=== PATIENT | male | born 1990 | race Two or more races ===

== ENCOUNTER 2019-11-21 17:26 | Emergency (ER) | payer SELFPAY ==
[~2019-11-21] VITALS: Ht 175.3 cm; Wt 77.1 kg
[2019-11-21 17:49] VITALS: BP 120/85
--- NOTE | 2019-11-21 17:55 | NUR ---
ED Nurse Note: patient walked into ED from work, reports left eye injury, c/o 03/25. patient reports some "trash" got into his eye and he could not take it out. patient is alert awake ambulatory breathing unlabored and even, speaking in full sentences.
--- NOTE | 2019-11-21 18:05 | Emergency Room Report ---
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 He has pain and redness. The patient also has foreign body sensation in his upper lid. This is only when he closes his side. There is no discharge. Patient denies fevers or chills. Allergies: Coded Allergies: No Known Allergies (Unverified , 11/21/19) Patient History Past Medical History: see triage record Social History: Denies: smoking Social History Narrative Employed Reviewed Nursing Documentation: PMH: Agreed; PSxH: Agreed Nursing Documentation-PMH Past Medical History: No Stated History Review of Systems Constitutional: Reports: see HPI Eye: Reports: see HPI ENT: Denies: nose congestion Gastrointestinal: Denies: nausea Skin: Denies: rash Neurological: Denies: headache Physical Exam Vital Signs Date Time Temp Pulse Resp B/P (MAP) Pulse Ox O2 Delivery O2 Flow Rate FiO2 11/21/19 17:49 97.7 77 18 120/85 95 Room Air Sp02 EP Interpretation: reviewed, normal General Appearance: well appearing, no apparent distress, GCS 15 Head: normocephalic Eyes: left eye fluoroscene uptake - Area of foreign body, left eye other - Lid retraction no foreign body; bilateral eye PERRL, bilateral eye EOMI, bilateral eye visual acuity - 20/30 bilaterally ENT: moist mucus membranes Neck: normal inspection Respiratory: normal inspection Cardiovascular #1: regular rate, rhythm Cardiovascular #2: 2+ radial (R) Gastrointestinal: normal inspection Musculoskeletal: gait/station normal Neurologic: alert, grossly normal, normal inspection Psychiatric: mood/affect normal Skin: normal color, no rash Procedures Additional Procedure Procedure Narrative Under slit lamp examination after tetracaine instillation foreign body removed with 25-gauge needle and then swept away with applicator tip. Patient tolerated the procedure well. Medical Decision Making Diagnostic Impression: Primary Impression: Corneal foreign body with residual material Qualified Codes: T15.02XA - Foreign body in cornea, left eye, initial encounter ER Course Patient presents with foreign body sensation left eye. Differential includes corneal foreign body, lid foreign body, iritis, corneal abrasion, corneal ulcer amongst others. Based on exam foreign body and is present and suggestion of rust ring. Slit lamp exam and foreign body removal indicated. Improvement after tetracaine. Foreign body removed with 25-gauge needle. Rust ring persists. Antibiotic ointment applied to eye. Patient improved with treatment. Discussed the need for close outpatient follow-up with cleaner operator or customer advocacy manager. Discussed that rust ring will persist without further treatment. Patient improved and stable for outpatient observation and treatment. Last Vital Signs Date Time Temp Pulse Resp B/P (MAP) Pulse Ox O2 Delivery O2 Flow Rate FiO2 11/21/19 19:50 97.7 77 18 120/85 95 Room Air Status: improved Disposition: HOME, SELF-CARE Condition: Improved Scripts Hydrocodone Bit/Acetaminophen 5-325* (NORCO 5-325*) 1 Each Tablet 1 TAB ORAL Q6H PRN for For Pain, #6 TAB 0 Refills Prov: Kevin Stewart MD 11/21/19 Ibuprofen* (MOTRIN*) 600 Mg Tablet 600 MG ORAL Q6H PRN for For Pain, #20 TAB Prov: Kevin Stewart MD 11/21/19 Sulfacetamide Sodium (BLEPH-10) 5 Ml Drops 2 DROP OP Q6HR, #10 ML Prov: Kevin Stewart MD 11/21/19 Kevin Stewart MD Nov 21, 2019 18:05
[2019-11-21] MEDS ORDERED: Tetracaine 0.5% Opth 4ml Soln LEFT EYE ONE (18:15)
[2019-11-21] MEDS ORDERED: Fluorescein Strips LEFT EYE ONE (18:15)
--- NOTE | 2019-11-21 19:06 | NUR ---
HAND-OFF: Report given to Josie MYLES.
[2019-11-21] MEDS ORDERED: BLEPH-105 ML OP (19:36)
[2019-11-21] MEDS ORDERED: IBUPROFEN600 MG ORAL (19:36)
[2019-11-21] MEDS ORDERED: NORCO 5-325 TA1 EACH ORAL (19:37)
[2019-11-21 19:50] VITALS: BP 120/85
--- NOTE | 2019-11-21 19:50 | NUR ---
ED Nurse Note: Pt cleared by health care Provider for discharge. DC instructions/prescription were given and explained to pt. pt verbalized understanding of teachings. All medical devices such as ID band removed. Pt is AAO x4, ambulatory and left with all personal belongings.
== END 2019-11-21 19:50 | disposition home or self-care (01) ==
LOC: EMR 18:49
DX: T15.02XA Foreign body in cornea, left eye, initial encounter (principal); X58.XXXA Exposure to other specified factors, initial encounter; Y92.9 Unspecified place or not applicable
CPT/HCPCS: 99283